=== PATIENT | female | born 1985 | race Caucasian/White ===

== ENCOUNTER 2018-05-04 19:29 | Inpatient (IN) | payer OTHER ==
[2018-05-04] MEDS ORDERED: Dinoprostone* 10 MG VAG.SUPP VAGINAL ONE (20:04)
--- NOTE | 2018-05-04 20:52 | PN ---
L&D Outpatient: Visit - Reproductive Information Estimated Due Date: 04/27/18 Gestational Age: 41 Weeks and 0 Days : 1 Para: 0 - Reason for Visit Visit Reason: Here for cervical ripening and induction of labor for postdates - Antepartal Records Antepartal Record: Reviewed, Uncomplicated - Patient History Patient History Significant: No Review of Systems Constitutional: Comfortable CV Complaint: No Respiratory: Shortness of Breath: No Gastrointestinal: No Nausea/Vomiting, Normal Bowel Movement, Nausea, Soft Stool Genitourinary: No Dysuria, No Bleeding, No Leaking Fluid Musculoskeletal: No Complaint Neurological: No Headache, No Visual Changes Movement: Normal L&D Outpatient: Exam Vitals - Most Recent: BP 127/70 T 98.9 HR 72 O2 100 - Cervical Exam Cervical Exam: 1cm/80%/vertex -1 - Abdominal Exam Abdomen Exam: Non-Tender, Fundal Height Consistent with Dates Abdomen Exam Comment: EFW 7.5lb - Membranes Membrane Status: Intact - Ultrasound/Biophysical Profile Ultrasound Status: Not Done EFM Findings - External Monitor Findings Baseline Heart Rate: 140 External Monitor Findings: Accelerations Present, No Pattern of Variable or Late Decelerations, Variability Moderate Contractions: None L&D Outpatient: Asses/Plan Assessment: IUP @ 41+0 weeks gestation, IBOW, no evidence metbolic acidemia - Discharge Diagnosis Discharge Diagnosis: Post Dates Plan: Continue Observation - Plan to place cervidil, monitor per protocol. Consider continued cervical ripening vs IOL vs discharge
--- NOTE | 2018-05-04 23:06 | PN ---
Progress Note - Progress Note Date of Service: 05/04/18 SOAP: Subjective: [Pt feeling well. Discussed plan of care. Denies ctx, will try to sleep overnight. Reports active FM. ] Objective: [FHR baseline 140, mod errol, + accels, no decels- Cat I No contractions Cervidil in place] Assessment: [ at 41 0/7 weeks gestation undergoing cervical ripening for post dates IOL No evidence of acidemia] Plan: [Leave Cervidil in place until morning unless active labor begins Intermittent monitoring Encourage rest]
--- NOTE | 2018-05-05 09:01 | HP ---
General Information - General Information Maternal Age: 33 Grav: 1 Para: 0 SAB: 0 IEA: 0 Estimated Due Date: 04/27/18 Determined By: LMP Gestational Age in Weeks/Days: 41 1/7 Maternal Blood Type and Rh: A Negative - Results this Serology/RPR Result: Non-Reactive Rubella Result: Immune HBsAg Result: Negative HIV Result: Negative GBS Culture Result: Negative Past Medical History Delivery History: See Records - Primiparous Pertinent Past Medical History: Non-Contributory Pertinent Past Surgical History: None Pertinent Family History: Non-Contributory - Antepartal Records Antepartal Records: Reviewed, Uncomplicated - Rh- Review of Systems Constitutional: Comfortable CV Complaint: No Respiratory: Shortness of Breath: No Gastrointestinal: No Nausea/Vomiting, Normal Bowel Movement Genitourinary: No Dysuria, No Bleeding, No Leaking Fluid Musculoskeletal: No Complaint, No Epigastric Pain Neurological: No Headache, No Visual Changes Movement: Normal Exam Allergies/Adverse Reactions: Allergies amoxicillin Allergy (Verified 04/21/18 22:22) Rash T-98.1 P-70 R-18 BP-122/61 - Measurements Height: 5 ft 5 in Weight: 73.482 kg Weight in lbs: 162.029878 Body Mass Index (BMI): 26.9 Pre- Weight: 61.689 kg Weight Gained This : 26 lbs and 0 ozs - Exam Breast: Breast Exam Deferred CVA: No CVA Tenderness Extremities: No Edema Heart: Normal Rhythm/Heart Sounds HEENT: No Significant Findings Lungs: Clear Bilaterally Rectal: Rectal Exam Deferred Reflexes: DTR 2+ Thyroid: No Thyromegaly - Abdominal Exam Abdomen Exam: Non-Tender, Fundal Height Consistent with Dates - Ultrasound/Biophysical Profile Ultrasound Status: Not Done Targeted Exam Findings See L&D Outpatient Visit Provider Note for Findings: Yes Estimated Weight: 7# Cervical Exam: 1cm Effacement: 100% Station: -1 Presenting Part: Vertex Membrane Status: Intact Bleeding/Discharge: Bloody Show EFM Findings - External Monitor Findings Baseline Heart Rate: 145 External Monitor Findings: Accelerations Present, No Pattern of Variable or Late Decelerations, Variability Moderate, Baseline Stable Contractions: Irregular, Mild, 45-90 Seconds Contraction Frequency: 2-5 Assessment/Plan - Assessment 33 year old at 41 1/7 weeks gestation being induced for post-dates, cervix reasonably favorable. No evidence of acidemia - Plan Plan: Induction - After discussing options with pt will do trial of Pitocin. , Admit - Anticipate Vaginal Delivery
[2018-05-05] MEDS ORDERED: Oxytocin in LR* 20 UNITS/1,000 ML BAG IVPB SCH (10:00)
[2018-05-05 10:26] LABS: ABS Basophils 0 10^3/ul (0-0.2); ABS Eosinophils 0 10^3/ul (0-0.6); ABS Lymphocytes 1.3 10^3/ul (1.0-4.8); ABS Monocytes 0.4 10^3/ul (0-0.8); ABS Neutrophils 6.5 10^3/ul (1.5-7.7); ABS Nucleated RBC 0 10^3/ul; Eosinophil % 0.2 % (0-6); Hematocrit 34 % (35-47); Hemoglobin 11.7 g/dl (12.0-16.0); Lymphocyte % 15.7 % (25-47); Mean Corpuscular HGB Conc 34 g/dl (31-36); Mean Corpuscular Hemoglobin 29 pg (27-31); Mean Corpuscular Volume 84 fL (80-97); Mean Platelet Volume 7.5 um3 (7.4-10.4); Nucleated Red Blood Cells % 0.1; Platelet Count 212 10^3/ul (150-450); Red Blood Count 4.07 10^6/ul (4.00-5.40); Red Cell Distribution Width 13 % (10.5-15); White Blood Count 8.2 10^3/ul (3.5-10.8)
--- NOTE | 2018-05-05 11:56 | PN ---
Progress Note - Progress Note Date of Service: 05/05/18 SOAP: Subjective: [Pt sitting on ball, reports UCs feeling stronger, but still very manageable. Reports active FM. Reports increased bloody show.] Objective: [FHR baseline 140, + accels, no decels, mod variability UCs-2-3 minutes, 40-60 seconds, mild Pitocin at 6 mu/min] Assessment: Pitocin appears to be having an effect, although does not yet appear to be in active labor. FHR Cat I, no evidence of acidemia. Pt coping well. ] Plan: [Continue Pitocin induction. ]
--- NOTE | 2018-05-05 14:29 | PN ---
Progress Note - Progress Note Date of Service: 05/05/18 SOAP: Subjective: [Pt feeling more uncomfortable with ctx. Needs to focus on them more, breathing through some. Reports more bloody show. ] Objective: [FHR- 140, mod variability, + accels, no decels- Cat I UC's-Q 2-4 minutes, 60 seconds, mild to moderate Cervical exam- 2cm/ 100%/ 0 station, but deviated to the pt's left, although less so than at last exam Pitocin at 6 mu/ min Vital signs stable Membranes intact] Assessment: [Pt appears to be in early labor. Coping well. No evidence of acidemia. ] Plan: [Continue Pitocin augmentation Will try tub for pain relief]
[2018-05-05] MEDS ORDERED: OBEPIDURAL* 250 ML EPIDURAL ONE (16:42)
--- NOTE | 2018-05-05 16:59 | PN ---
Progress Note - Progress Note Date of Service: 05/05/18 SOAP: Subjective: [Pt increasingly uncomfortable, requests pain relief. Discussed available options, including nonpharmocologic, IV pain meds, nitrous oxide, and epidural. Pt would prefer epidural. ] Objective: [Cervical exam- 3-4 cm, 100%, 0 station FHR-140, + accels, 0 decels, moderate variability, Cat I UC's-Q 2-3 minutes, 60-80 seconds, moderate strength Pitocin- 10 mu ] Assessment: [Pt progressing into active labor. Would like epidural for pain relief. No evidence of acidemia. ] Plan: [Dr. Tamayo notified, here to place labor epidural Continue Pitocin induction Will consider AROM once pt is comfortable. ]
[2018-05-05] MEDS ORDERED: Famotidine TAB* 20 MG PO PRN (17:26)
[2018-05-05] MEDS ORDERED: Sodium Citrate/Citric Acid* 15 ML UDC PO PRN (17:26)
[2018-05-05] MEDS ORDERED: EPHEDrine (Pressors)* 50 MG/ML VIAL IV PUSH PRN ×2 (17:26)
[2018-05-05] MEDS ORDERED: Phenylephrine IV* 40 MCG/ML 10 ML SYRINGE IV PUSH PRN ×2 (17:26)
[2018-05-05] MEDS ORDERED: OBEPIDURAL* 250 ML EPIDURAL SCH (18:00)
--- NOTE | 2018-05-05 19:53 | PN ---
Progress Note - Progress Note Date of Service: 05/05/18 SOAP: Subjective: [] Objective: [] Assessment: [] Plan: []
--- NOTE | 2018-05-05 20:40 | PN ---
Progress Note - Progress Note Date of Service: 05/05/18 Note: Previous progress note was lost due to computer problems. Pt resting comfortably with epidural. FHR tracing Cat I. UC's every 3-4 minutes, moderate. Pitocin at 13 mu. Cervical exam 4-5 cm/ 100%/ midline Attempted AROM, unclear whether successful. No gush of fluid, no bulging bag. Will reevaluate with next exam. Encouraged pt to rest. Plan to continue Pitocin induction. Anticipate .
[2018-05-06] MEDS ORDERED: Acetaminophen TAB* 325 MG ONE (00:40)
[2018-05-06] MEDS ORDERED: ceFOXitin 2 GM IVPREMIX* 2 GM/50 ML BAG ONE (00:41)
[2018-05-06] MEDS ORDERED: Witch Hazel PAD* JAR TOPICAL PRN (01:29)
[2018-05-06] MEDS ORDERED: Glycerin ADULT SUPP PR PRN (01:29)
[2018-05-06] MEDS ORDERED: Acetaminophen TAB* 325 MG PO PRN (01:29)
[2018-05-06] MEDS ORDERED: Dibucaine 1% 28.35 GM TUBE PR PRN (01:29)
--- NOTE | 2018-05-06 01:43 | PROCNOTE ---
[facility] OB: Delivery Note - Nursery Level of Nursery: Regular/Bedside - Perineum Perineal Injury: 2nd Degree Perineal Repair: By Delivering Practioner - fever in labor / 1 dose cefoxitin just prior to delivery . tachycardia. - Events Delivery Events of Note: Maternal Temperature during Labor, Partial Course of Antibiotics
--- NOTE | 2018-05-06 01:54 | PN ---
Progress Note - Progress Note Date of Service: 05/06/18 Note: At 2305 pt examined and found to be fully dilated/ +2 station and ready to push. Initiated pushing efforts. Pt was making slow but steady progress. During pushing became tachycardic and pt developed a fever of 101.7. Dr. Nolan called to assess pt. Cefoxitin 2 grams ordered and initiated.
[2018-05-06] MEDS: Oxytocin in LR* 20 UNITS/1,000 ML BAG IVPB SCH ×2 (02:35→09:48)
[2018-05-06] MEDS: Ibuprofen TAB* 600 MG PO PRN ×3 (08:13→20:11)
[2018-05-06] MEDS ORDERED: Simethicone TAB* 80 MG TAB.CHEW PO SCH (08:30)
[2018-05-06] MEDS: Docusate CAP* 100 MG PO SCH ×3 (09:06→20:12)
--- NOTE | 2018-05-06 17:17 | PTEDU ---
Patient Name: VIRI LOPEZ VIRI LOPEZ selected video: Never Ever Shake a Baby to view on 05/06/2018 at 5:15:51 PM [email or web address] [id number]
[2018-05-07] MEDS: Ibuprofen TAB* 600 MG PO PRN ×3 (06:32→18:30)
[2018-05-07 07:03] LABS: ABS Basophils 0 10^3/ul (0-0.2); ABS Eosinophils 0.1 10^3/ul (0-0.6); ABS Lymphocytes 1.5 10^3/ul (1.0-4.8); ABS Monocytes 0.6 10^3/ul (0-0.8); ABS Neutrophils 7.8 10^3/ul (1.5-7.7); ABS Nucleated RBC 0 10^3/ul; Eosinophil % 1.1 % (0-6); Hematocrit 26 % (35-47); Hemoglobin 8.9 g/dl (12.0-16.0); Lymphocyte % 15.3 % (25-47); Mean Corpuscular HGB Conc 35 g/dl (31-36); Mean Corpuscular Hemoglobin 29 pg (27-31); Mean Corpuscular Volume 85 fL (80-97); Mean Platelet Volume 7.5 um3 (7.4-10.4); Nucleated Red Blood Cells % 0; Platelet Count 150 10^3/ul (150-450); Red Blood Count 3.02 10^6/ul (4.00-5.40); Red Cell Distribution Width 14 % (10.5-15)
[2018-05-07] MEDS: Docusate CAP* 100 MG PO SCH ×3 (08:47→21:26)
[2018-05-07] MEDS: Ferrous Gluconate TAB* 324 MG TAB PO SCH ×2 (08:47→21:26)
[2018-05-08] MEDS: Ibuprofen TAB* 600 MG PO PRN ×2 (04:30→08:42)
[2018-05-08 07:59] VITALS: BP 122/61
[2018-05-08] MEDS: Ferrous Gluconate TAB* 324 MG TAB PO SCH (08:43)
[2018-05-08] MEDS: Docusate CAP* 100 MG PO SCH (08:43)
== END 2018-05-08 10:20 | disposition home or self-care (01) | DRG 560 ==
LOC: MCHOBOUT 19:29 → MCHOB 05-05 08:56
PROVIDERS: ADMIT Midwife; ATTEND Midwife
PROC: 10E0XZZ Delivery of Products of Conception, External Approach (ICD-10-PCS; principal; 2018-05-06)
PROC: 3E033VJ Introduction of Other Hormone into Peripheral Vein, Percutaneous Approach (ICD-10-PCS; 2018-05-06)
PROC: 0KQM0ZZ Repair Perineum Muscle, Open Approach (ICD-10-PCS; 2018-05-06)
DX: O48.0 Post-term pregnancy (principal); O75.2 Pyrexia during labor, not elsewhere classified; O70.1 Second degree perineal laceration during delivery; O69.81X0 Labor and delivery complicated by cord around neck, without compression, not applicable or unspecified; O90.81 Anemia of the puerperium; D64.9 Anemia, unspecified; Z3A.41 41 weeks gestation of pregnancy; Z37.0 Single live birth
CPT/HCPCS: 36415; 59200; 85025; 86850; 86900; 86901; A9270-GY; J0694

== ENCOUNTER 2021-09-10 08:07 | Inpatient (IN) ==
[2021-09-10] MEDS ORDERED: Buffered Lidocaine 1% SYRIN 1 ml INTRADERM ONE (08:53)
[2021-09-10] MEDS ORDERED: Lactated Ringers 1000 ml BAG 1,000 ML IV ONE ×2 (08:53→21:04)
[2021-09-10 09:59] LABS: Urine Benzodiazepine Screen None Detected (None Detect); Urine Cannabinoids Screen None Detected (None Detect); Urine Opiates Screen None Detected (None Detect)
[2021-09-10 12:30] LABS: ABS Lymphocytes 1.3 10^3/ul (1.0-4.8); ABS Monocytes 0.4 10^3/ul (0-0.8); ABS Neutrophils 4.2 10^3/ul (1.5-7.7); Eosinophil % 0.6 %; Hematocrit 33 % (35-47); Hemoglobin 11.4 g/dL (12.0-16.0); Lymphocyte % 21.6 %; Mean Corpuscular HGB Conc 34 g/dL (31-36); Mean Corpuscular Hemoglobin 30 pg (27-31); Mean Corpuscular Volume 86 fL (80-97); Mean Platelet Volume 8.4 fL (7.4-10.4); Nucleated Red Blood Cells % 0.1; Platelet Count 179 10^3/uL (150-450); Red Blood Count 3.87 10^6 /uL (3.70-4.87); Red Cell Distribution Width 13 % (10-15); White Blood Count 5.9 10^3/uL (3.5-10.8)
[2021-09-10] MEDS ORDERED: Oxytocin in LR 20 UNITS/1,000 ML BAG IVPB SCH ×2 (19:00→23:00)
[2021-09-10] MEDS ORDERED: OBEPIDURAL 250 ML EPIDURAL ONE (20:26)
[2021-09-10] MEDS ORDERED: Sodium Citrate/Citric Acid LIQ 15 ML UDC PO PRN (21:04)
[2021-09-10] MEDS ORDERED: EPHEDrine (Pressors) 50 MG/ML VIAL IV PUSH PRN ×2 (21:04)
[2021-09-10] MEDS ORDERED: Lactated Ringers 1000 ml BAG 500 ML IV PRN (21:04)
[2021-09-10] MEDS ORDERED: Phenylephrine 40 mcg/mL 10mL (400mcg) SYRINGE IV PUSH PRN ×2 (21:04)
[2021-09-10] MEDS ORDERED: Lactated Ringers 1000 ml BAG 1,000 ML IV SCH ×3 (22:00→23:00)
[2021-09-10] MEDS ORDERED: OBEPIDURAL 250 ML EPIDURAL SCH (22:00)
[2021-09-10] MEDS ORDERED: Dibucaine 1% OINT 28.35 GM TUBE PR PRN (22:10)
[2021-09-10] MEDS ORDERED: Glycerin ADULT 2.4 gm SUPP PR PRN (22:10)
[2021-09-10] MEDS ORDERED: Witch Hazel PAD JAR TOPICAL PRN (22:10)
[2021-09-10] MEDS ORDERED: RHO D Immune Globulin (HUMAN) 300 MCG = 1,500 I.U. INJ IM PRN (22:10)
[2021-09-10] MEDS ORDERED: Measles, Mumps,Rubella VACC 0.5 ML/VIAL SUBCUT ONE (22:10)
[2021-09-10] MEDS ORDERED: Lidocaine 1% VIAL 10 MG/ML VIAL ONE (23:00)
[2021-09-11 09:48] LABS: ABS Lymphocytes 1.2 10^3/ul (1.0-4.8); ABS Monocytes 0.5 10^3/ul (0-0.8); ABS Neutrophils 7.5 10^3/ul (1.5-7.7); Eosinophil % 0.1 %; Hematocrit 28 % (35-47); Lymphocyte % 12.8 %; Mean Corpuscular HGB Conc 35 g/dL (31-36); Mean Corpuscular Hemoglobin 30 pg (27-31); Mean Corpuscular Volume 86 fL (80-97); Mean Platelet Volume 7.9 fL (7.4-10.4); Platelet Count 152 10^3/uL (150-450); Red Blood Count 3.29 10^6 /uL (3.70-4.87); Red Cell Distribution Width 13 % (10-15); White Blood Count 9.1 10^3/uL (3.5-10.8)
[2021-09-12 08:24] VITALS: BP 111/61
== END 2021-09-12 12:08 | disposition home or self-care (01) | DRG 560 ==
LOC: MCHOBOUT 08:07 → MCHOB 09:12
PROVIDERS: ADMIT Advanced Practice Midwife; ATTEND Advanced Practice Midwife